=== PATIENT | female | born 1955 | race Caucasian/White ===

== ENCOUNTER → 2018-06-29 | Outpatient (CLI) | payer OTHER ==
[~2018-06-29] MED LIST: ALDACTONE25 MG PO; AMBIEN 5 MG TABL5 M1 PO; AMITRIPTYLINE H10 M1 PO; BUPROPION; DUEXIS 800-26.1 EACH PO; IBUPROFEN 800800 M1 PO; OMEPRAZOLE 20 M20 MG PO; ONDANSETRON HCL4 M2 PO; PERCOCET PO; PRILOSEC 20 MG20 MG PO; ROVIN-CF OF TA1 EACH; SKIN; SONATA10 MG PO; TENORMIN50 MG PO; TRAMADOL 50 MG50 MG PO; ULTRAM 50MG TAB50 MG PO; VICODIN 5-3001 EACH PO; WELLBUTRIN SR150 MG; WELLBUTRIN XL300 MG PO; ZANTAC 150MG T150 MG PO; [UNRECOGNIZED DRUG - OTHER]; [UNRECOGNIZED DRUG - OTHER] IMPLANT
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
== END | disposition home or self-care (01) ==
LOC: M.PC 04:25
DX: M47.26 Other spondylosis with radiculopathy, lumbar region (principal); G89.29 Other chronic pain; K21.9 Gastro-esophageal reflux disease without esophagitis; Z96.642 Presence of left artificial hip joint; Z98.890 Other specified postprocedural states; Z79.899 Other long term (current) drug therapy; Z88.2 Allergy status to sulfonamides; Z87.09 Personal history of other diseases of the respiratory system

== ENCOUNTER → 2018-08-03 | Outpatient (CLI) | payer OTHER ==
[~2018-08-03] MED LIST changes: -SKIN; -ZANTAC 150MG T150 MG PO; -[UNRECOGNIZED DRUG - OTHER]
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
== END | disposition home or self-care (01) ==
LOC: M.PC 04:48
DX: M54.16 Radiculopathy, lumbar region (principal); Z88.2 Allergy status to sulfonamides; Z79.899 Other long term (current) drug therapy; Z98.890 Other specified postprocedural states

== ENCOUNTER → 2018-08-31 | Outpatient (CLI) | payer OTHER ==
[~2018-08-31] MED LIST changes: +SKIN; +ZANTAC 150MG T150 MG PO; +[UNRECOGNIZED DRUG - OTHER]
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
== END | disposition home or self-care (01) ==
LOC: M.PC 04:57
DX: M47.26 Other spondylosis with radiculopathy, lumbar region (principal); G89.29 Other chronic pain; K21.9 Gastro-esophageal reflux disease without esophagitis; Z98.890 Other specified postprocedural states; Z96.642 Presence of left artificial hip joint; Z88.2 Allergy status to sulfonamides; Z79.899 Other long term (current) drug therapy

== ENCOUNTER → 2018-09-28 | Outpatient (CLI) | payer OTHER ==
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
== END ==
LOC: M.PC 04:54
DX: M47.26 Other spondylosis with radiculopathy, lumbar region (principal); K21.9 Gastro-esophageal reflux disease without esophagitis; R91.8 Other nonspecific abnormal finding of lung field; Z96.642 Presence of left artificial hip joint

== ENCOUNTER → 2019-02-15 | Outpatient (CLI) | payer OTHER ==
[~2019-02-15] MED LIST changes: +LYRICA 75 MG CA75 MG PO; +PROGESTERONE100 MG PO
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
== END | disposition home or self-care (01) ==
LOC: M.PC 10:00
DX: M47.26 Other spondylosis with radiculopathy, lumbar region (principal); G89.29 Other chronic pain; K21.9 Gastro-esophageal reflux disease without esophagitis; Z96.642 Presence of left artificial hip joint; Z98.890 Other specified postprocedural states; Z88.2 Allergy status to sulfonamides; Z79.899 Other long term (current) drug therapy

== ENCOUNTER → 2019-03-31 | Outpatient (CLI) | payer OTHER ==
[~2019-03-31] MED LIST changes: +MEDROLDOSEPACK PO
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
== END ==
LOC: M.PC 04:46
DX: M47.26 Other spondylosis with radiculopathy, lumbar region (principal); K21.9 Gastro-esophageal reflux disease without esophagitis; R91.1 Solitary pulmonary nodule; Z88.2 Allergy status to sulfonamides; Z79.899 Other long term (current) drug therapy

== ENCOUNTER → 2019-06-30 | Outpatient (CLI) | payer OTHER ==
--- NOTE | ~2019-06-30 | PAINCON ---
[address] [address] PAIN MANAGEMENT CONSULTATION Name: SHAYY ASHRAF [id number] Admission: 06/30/19 Attend Phys: Marissa Chen MD Discharge: Date of : 57 Report #: [id number] THIS REPORT FOR: //name// CC: Alen Chen DATE OF SERVICE: 06/30/2019 CHIEF COMPLAINT: Pain and discomfort in the low back and down to the left hip. It is radiating down into both legs and involving my feet. HISTORY: The patient is a 63-year-old female who has been followed in the pain clinic because of lumbar radiculopathy. She has undergone epidural steroid injections in the past. They have been beneficial. She returns today indicating that her pain level has risen to the point where it is uncomfortable. She is experiencing pain that is radiating down into her legs bilaterally. She notes injections, which have been beneficial. She is unable to sit, walk for long periods of time because of the increasing pain and discomfort. She finds that her medications are helpful and is taking them as prescribed. ALLERGIES: SULFA. CURRENT MEDICATIONS: Ibuprofen 800 mg q.i.d., famotidine/ibuprofen, Duexis 26.6/800 mg q. 8 hours, ondansetron 4 mg every 4-6 hours, Ultram 50 mg q. 6 hours p.r.n., Ambien 5 mg at bedtime, amitriptyline 20 mg daily. PAIN CLINIC AND PQRS: 1. The patient has some osteoarthritis, has some arthritic changes involving her hip. She has pain that radiates down into the lower portion of her back. She is not being treated for rheumatoid arthritis. 2. Height 5 feet 9 inches, weight 229 pounds, BMI is 34. 3. Vital signs: Blood pressure 140/86, heart rate 99, respiratory rate 16, room air saturation 95%, temperature 98.6. 4. Pain intensity 02/09. 5. Fall history: The patient has not fallen in the last 3 months. 6. Blood thinner. The patient is not on a blood thinning medication. 7. Hypertension. The patient is not being treated for hypertension. 8. Opioids greater than 6 weeks. The patient receives medications of tramadol through the pain clinic. 9. Risk assessment tool, low for opioid use. 10. Functional assessment tool. 11. Recreational drug use. The patient denies. 12. Tobacco: The patient denies use of tobacco. 13. Alcohol. The patient denies use of alcoholic beverages. PHYSICAL EXAMINATION: [address] [place] [address] PAIN MANAGEMENT CONSULTATION Name: SHAYY ASHRAF Room: [facility]#: [id number] Admission: 06/30/19 Attend Phys: Marissa Chen MD Discharge: Date of : 57 Report #: [id number] GENERAL: The patient is a well-developed, well-nourished white female. Appears her stated age. She is alert and oriented x 3. Her affect is appropriate. Speech is fluent. HEENT: Normocephalic, atraumatic. Extraocular eye muscles intact. Sclerae nonicteric. Mucous membranes are moist. NECK: Without adenopathy or JVD. HEART: Regular rate. ABDOMEN: Nontender. EXTREMITIES: Upper extremity muscle strength judged to be 5/5 for the major muscle groups in the upper extremity. The patient has pain and discomfort secondary to her shock shoulder. She has had a frozen shoulder on the right with limitation of motion. Continues to have pain that radiates into her back. Has pain in the L5/L4 dermatomal distribution. IMPRESSION: 1. Lumbar radiculopathy, L4-L5 dermatomal distribution improved after epidural steroid injections by greater than 50%. 2. Left hip pain. 3. Gastroesophageal reflux. 4. Pulmonary nodules. 5. Lumbar spondylosis. 6. History of sciatica. RECOMMENDATIONS: We discussed treatment options with the patient. Risks and benefits of an epidural steroid injection were discussed. They include but are not limited to infection, worsening of pain, no improvement in pain, nerve damage, headache, spinals damage and the patient elects to proceed. PROCEDURE NOTE: The patient was taken to the procedure area. She was then assisted in getting on the examination table. Her back was sterilely prepped with a Betadine solution. A pillow had been placed under the abdomen to bolster and improve positioning. A total of 4 mL of 0.5% bupivacaine was injected at the midline L4-L5 area to numb the area of the procedure. A 17-gauge Tuohy with loss of resistance technique was used to gain access to the epidural space. There was no CSF, heme or paresthesia. Total of 80 mg Depo-Medrol, 40 mg triamcinolone and 2 mL of 0.25% bupivacaine was injected. The patient tolerated the procedure well. There were no complications. She remained in the Pain Clinic for an appropriate amount of time. A script for her medications of amitriptyline 10 mg 2 tablets at bedtime for a total of 20 mg have been rewritten. The patient will also continue with tramadol 50 mg 1 p.o. t.i.d. p.r.n. and Lyrica 75 mg 1 p.o. b.i.d. as needed. [facility] [address] [place] [address] PAIN MANAGEMENT CONSULTATION Name: DANIEL ASHRAFTalisha Neely Room: [facility]#: [id number] Admission: 06/30/19 Attend Phys: Marissa Chen MD Discharge: Date of : 57 Report #: [id number] We would like to thank you for letting us participate in her care. We hope she continues to improve. Total of 8 seconds time was used. By: 1634 [id number]. Woody Chen MD /PMT
== END | disposition home or self-care (01) ==
LOC: M.PC 03-22 01:41
DX: M54.16 Radiculopathy, lumbar region (principal); K21.9 Gastro-esophageal reflux disease without esophagitis; R91.1 Solitary pulmonary nodule; M47.896 Other spondylosis, lumbar region; M19.90 Unspecified osteoarthritis, unspecified site; I10 Essential (primary) hypertension; Z88.2 Allergy status to sulfonamides; Z79.899 Other long term (current) drug therapy

== ENCOUNTER → 2019-12-13 | Outpatient (CLI) | payer MEDICARE, OTHER ==
[~2019-12-13] MED LIST changes: +LYRICA 50 MG50 MG PO; +progesterone PO
--- NOTE | 2019-12-16 08:24 | PAINCON ---
[address] [address] PAIN MANAGEMENT CONSULTATION Name: SHAYY ASHRAF Room: [facility] RyanElly#: [id number] Admission: 12/13/19 Attend Phys: Marissa Chen MD Discharge: Date of : 57 Report #: [id number] THIS REPORT FOR: //name// cc: Alen Wilkerson Brad DO ~ THIS REPORT FOR: //name// CC: Alen Ayoub DATE OF SERVICE: 12/13/2019 PRIMARY CARE PHYSICIAN: Alen Wilkerson DO CHIEF COMPLAINT: Left hip pain and pain going down into both the left and the right hip, the right pain is caused me to have difficulty sleeping. HISTORY: The patient is a 63-year-old female who has been followed in the pain clinic because of chronic pain. She has undergone epidural steroid injections in the past. She has found these beneficial. She returned today because of her pain continues to be quite problematic. Pain involves both her left and the right side. She has noticed that the pain in the right side has been somewhat problematic. She has difficulty going to sleep on that side. She has been having some increased burning in her feet, which is intense. She did have a urinary tract infection. She is now status post treatment of this urinary tract infection. She was provided with an antibiotic. States that this UTI symptomatology has resolved. She would like to proceed today with an epidural injection. She rates her pain today as 5/10. Notes that the pain is worse with activities, particularly when walking. Has used medications as well as heat to help control the discomfort. ALLERGIES: SULFA. CURRENT MEDICATIONS: Amitriptyline 10 mg at bedtime, uses 2 pills; ibuprofen 800 mg q. 8 hours p.r.n.; ibuprofen/famotidine, Duexis, 800/26.6; omeprazole 20 mg, ondansetron 4 mg q. 6 hours p.r.n., Lyrica 75 mg b.i.d., progesterone 100 mg, tramadol 50 mg q. 6 hours p.r.n., Ambien 5 mg at bedtime, multivitamins. PAIN CLINIC ASSESSMENT AND PQRS: 1. The patient has some arthritic changes involving her hip. She has pain that is radiating down into the lower portion of her back. She is not being treated for rheumatoid arthritis. 2. Height 5 feet 9 inches, weight 230 pounds, BMI is 34. 3. Vital signs: Blood pressure 156/104, second blood pressure 173/99, heart rate 111, respiratory rate 16, room air saturation 96%, [place] 98.0[place] [address] PAIN MANAGEMENT CONSULTATION Name: SHAYY ASHRAF [facility] [id number] Admission: 12/13/19 Attend Phys: Marissa Chen MD Discharge: Date of : 57 Report #: [id number] 4. Pain intensity 5/10. 5. Fall history: The patient has not fallen in the last 3 months. 6. Blood thinner. The patient is not on a blood thinning medication. 7. Hypertension. The patient is not being treated for hypertension. 8. Opioids greater than 6 weeks. The patient received medication from one source, primary care physician. 9. Risk assessment tool, low for opioid use. 10. Functional assessment tool. 11. Recreational drug use: The patient denies. 12. Tobacco: The patient denies. 13. Alcohol: The patient denies use of alcoholic beverages. PHYSICAL EXAMINATION: GENERAL: The patient is a well-developed, well-nourished white female. Appears her stated age. She is alert and oriented x 3. Her affect is appropriate. Speech is fluent. HEENT: Normocephalic, atraumatic. Extraocular eye muscles intact. Sclerae nonicteric. Mucous membranes are moist. NECK: Without adenopathy or JVD. HEART: Regular rate. ABDOMEN: Nontender. Bowel sounds present. EXTREMITIES: Upper extremity muscle strength judged to be 5/5 for the major muscle groups in the upper extremity. The patient without significant scoliosis, kyphosis or lordosis. The patient has some pain in the low back area. Has some pain that radiates down into her hips bilaterally. Has pain in the L4-L5 dermatomal distribution, particularly on the left leg. The patient has a frozen shoulder on the right which limits range of motion in this area. IMPRESSION: 1. Lumbar radiculopathy, L4-L5 distribution, improved after epidural steroid injections by greater than 50%. 2. Left hip pain. 3. Gastroesophageal reflux. 4. Pulmonary nodules. 5. Lumbar spondylosis. 6. History of sciatica. 7. History of frozen shoulder on the right. RECOMMENDATIONS: We discussed treatment options with the patient. Risks and benefits of an epidural steroid injection were discussed. Possible complications of the procedure, which could include but are not limited to infection, worsening pain, no improvement in pain, bleeding, nerve damage and the patient elects to proceed. PROCEDURE NOTE: The patient was taken to the procedure area. She was then assisted in getting on examination table. Her back was sterilely prepped with a [facility] [address] [place] [place] [address] PAIN MANAGEMENT CONSULTATION Name: SHAYY ASHRAF [facility] [id number] Admission: 12/13/19 Attend Phys: Marissa Chen MD Discharge: Date of : 57 Report #: [id number] Betadine solution. A 0.25% bupivacaine was infiltrated. A 17-gauge Tuohy with loss of resistance technique was used to gain access to the epidural space. There was no CSF, heme or paresthesia. A total of 80 mg Depo-Medrol, 40 mg triamcinolone and 0.25% bupivacaine was infiltrated at the L4-L5 interspace. The patient tolerated the procedure well. She remained in the Pain Clinic for an appropriate amount of time. She will follow up in the future as needed. We would like to thank you for letting us participate in her care. We hope she continues to improve. <ELECTRONICALLY SIGNED> By: Marissa Chen MD 12/16/19 0824 [id number]. Woody Chen MD /nt
== END | disposition home or self-care (01) ==
LOC: M.PC 09:43
DX: M47.26 Other spondylosis with radiculopathy, lumbar region (principal); M25.552 Pain in left hip; G89.29 Other chronic pain; K21.9 Gastro-esophageal reflux disease without esophagitis; Z98.890 Other specified postprocedural states; Z79.899 Other long term (current) drug therapy; Z88.2 Allergy status to sulfonamides

== ENCOUNTER → 2020-04-05 | Outpatient (CLI) | payer MEDICARE, OTHER ==
[~2020-04-05] MED LIST changes: +TENORMIN25 MG PO
--- NOTE | 2020-05-10 15:40 | PAINCON ---
[address] [address] PAIN MANAGEMENT CONSULTATION Name: SHAYY ASHRAF [facility]: [facility] AguilarKelly#: [id number] Admission: 04/05/20 Attend Phys: Marissa Chen MD Discharge: Date of : 57 Report #: [id number] THIS REPORT FOR: //name// cc: Alen Wilkerson Brad DO ~ THIS REPORT FOR: //name// CC: Alen Chen DATE OF SERVICE: 04/05/2020 PRIMARY CARE PHYSICIAN: Alen Wilkerson DO CHIEF COMPLAINT: Low back pain. HISTORY: The patient is a 64-year-old female who has been seen in the pain clinic in the past because of lumbar radiculopathy. She continues to have pain that waxes and wanes. It involves her low back. She has pain that radiates down into both left and right hip areas. It is rated as 5/10 today. She has some discomfort down into her feet. There is a burning sensation involved. She has been taking ibuprofen to help with the pain. She also continues to use Lyrica. She has used tramadol as well as amitriptyline. Notes that the pain is worse with activity. Medications and heat can be beneficial as well. She has returned today with the hopes of undergoing an epidural steroid injection to help quell the pain and discomfort she is experiencing. ALLERGIES: SULFA. CURRENT MEDICATIONS: Amitriptyline 10 mg at bedtime, uses 2 pills; ibuprofen 800 mg every 8 hours p.r.n., ibuprofen/famotidine Duexis 800/26.6, omeprazole 20 mg, ondansetron 4 mg q.6 hours p.r.n., Lyrica 75 mg b.i.d., progesterone 100 mg, tramadol 50 mg q. 6 hours p.r.n., Ambien 5 mg at bedtime, and multivitamins. PAIN CLINIC ASSESSMENT AND PQRS: 1. The patient has some arthritic changes in her hip. She does have pain that radiates down the lower portion of her back. She is not being treated for rheumatoid arthritis. 2. Height 5 feet 9 inches, weight 240 pounds, BMI is 35. 3. Vital signs: Blood pressure 146/68, pulse 96, respiratory rate 16, room air saturation 98%, temperature 98.9. 4. Pain intensity 5/10. 5. Fall history: The patient has not fallen in the last 3 months. 6. Blood thinner. The patient is not on a blood thinning medication. 7. Hypertension. The patient is not being treated for hypertension. 8. Opioids greater than 6 weeks. The [place] [address] PAIN MANAGEMENT CONSULTATION Name: DANIEL ASHRAFTalisha Neely Room: [facility]#: [id number] Admission: 04/05/20 Attend Phys: Marissa Chen MD Discharge: Date of : 57 Report #: [id number] source, her primary physician. 9. Risk assessment tool, low for opioid use. 10. Functional assessment tool reviewed. 11. Recreational drug use. The patient denies. 12. Tobacco: The patient denies. 13. Alcohol. The patient denies use of alcoholic beverages. PHYSICAL EXAMINATION: GENERAL: The patient is a well-developed, well-nourished white female. Appears her stated age. She is alert and oriented x 3. Her affect is appropriate. Speech is fluent. HEENT: Normocephalic, atraumatic. Extraocular eye muscles intact. Sclerae nonicteric. Mucous membranes are moist. NECK: Without adenopathy or JVD. HEART: Regular rate. ABDOMEN: Nontender. Bowel sounds present. EXTREMITIES: Upper extremity muscle strength judged to be 5/5 for the major muscle groups in the upper extremity. The patient without significant scoliosis, kyphosis or lordosis. The patient has pain in the lower portion of her back. Has pain is radiating down into her hips bilaterally. Pain is in the L4-L5 dermatomal distribution. The patient also has a frozen shoulder on the right, which limits her range of motion. IMPRESSION: 1. Lumbar radiculopathy, L4-L5 distribution, improved after epidural steroid injections in the past. 2. Left hip pain. 3. Gastroesophageal reflux. 4. Pulmonary nodules. 5. Lumbar spondylosis. 6. History of sciatica. 7. History of frozen shoulder on the right. RECOMMENDATIONS: We discussed treatment options with the patient. Risks and benefits of an epidural steroid injection were again discussed. Possible complications of the procedure, which could include but are not limited to infection, worsening of pain, no improvement in pain, nerve damage, bleeding were discussed. The patient elects to proceed. We explained to the patient that we were in a pandemic involving COVID-19. Steroids can decrease one's immunity, should the patient become infected after the injection, she may have a more difficult time if she is infected with the the virus given that steroids can lower ones immunity. She elects to proceed. PROCEDURE NOTE: The patient was taken to the procedure area. She was then assisted in getting on the examination table. Her [place] [address] PAIN MANAGEMENT CONSULTATION Name: SHAYY ASHRAF Room: [facility]#: [id number] Admission: 04/05/20 Attend Phys: Marissa Chen MD Discharge: Date of : 57 Report #: [id number] with a Betadine solution. A 0.25% bupivacaine was infiltrated at the L4-L5 interspace. There was no CSF, heme or paresthesia. Total of 80 mg Depo-Medrol, 40 mg triamcinolone and 2 mL of 0.25% bupivacaine was injected. The patient tolerated the procedure well. There were no complications. She remained in the Pain Clinic for an appropriate amount of time. She will follow up in the future as needed. A script for her medications of tramadol 50 mg 1 p.o. t.i.d. p.r.n. for pain has been written. The patient will also continue with Lyrica 50 mg 1 p.o. b.i.d. These were called into her pharmacy. We would like to thank you for letting us participate in her care. If she finds that the ibuprofen is causing gastric problems, she will stop taking that medication. <ELECTRONICALLY SIGNED> By: Marissa Chen MD 05/10/20 1540 1426 [id number]. Woody Chen MD /[facility]
== END | disposition home or self-care (01) ==
LOC: M.PC 03:55
PROVIDERS: ATTEND Anesthesiology Pain Medicine
DX: M54.16 Radiculopathy, lumbar region (principal); G89.29 Other chronic pain; K21.9 Gastro-esophageal reflux disease without esophagitis; Z98.890 Other specified postprocedural states; Z79.899 Other long term (current) drug therapy; Z88.2 Allergy status to sulfonamides

== ENCOUNTER → 2020-08-09 | Outpatient (CLI) | payer MEDICARE, OTHER ==
--- NOTE | 2020-08-24 08:24 | PAINCON ---
[address] [address] PAIN MANAGEMENT CONSULTATION Name: SHAYY ASHRAF Room: [facility].#: [id number] Admission: 08/09/20 Attend Phys: Marissa Chen MD Discharge: Date of : 57 Report #: [id number] THIS REPORT FOR: //name// cc: Alen Wilkerson DO Rhea,Alen DO ~ CC: Alen Chen DATE OF SERVICE: 08/23/2020 CHIEF COMPLAINT: Return of back pain. It involves both hips and down the right leg into the foot. HISTORY: The patient is a 64-year-old female who has been followed in the pain clinic. She suffers from lumbar radiculopathy. Epidural steroid injections have been performed in the past and brought her benefit. She rates her pain today as a 5-6/10. Has more difficulty over the last 3 months. She has had problems going shopping, sitting, standing and engaging in other activities. She feels that her medications continue to be helpful. She would like to proceed with epidural steroid injection given that her pain has increased at this juncture. ALLERGIES: SULFA. CURRENT MEDICATIONS: Amitriptyline 10 mg at bedtime 2 pills, ibuprofen 800 mg every 8 hours p.r.n., ibuprofen/famotidine 800/26.6, Omeprazole 20 mg, ondansetron 4 mg p.r.n., Lyrica 75 mg b.i.d., progesterone 100 mg, tramadol 50 mg p.r.n., Ambien 5 mg at bedtime, and multivitamins. PAIN CLINIC ASSESSMENT AND PQRS: 1. The patient has some arthritic changes in her hip. She has had pain that radiates down into the lower portion of her back. She is not being treated for rheumatoid arthritis. 2. Height 5 feet 9 inches, weight 241 pounds, BMI is 35.6. 3. Vital Signs: Blood pressure 136/85, heart rate 77, respiratory rate 16, room air saturation 97%. 4. Pain intensity is 5-6/10. 5. Blood thinner. The patient is not on a blood thinning medication. 6. Hypertension. The patient is not being treated for hypertension. 7. Opioids greater than 6 weeks. The patient received medication from her primary. 8. Risk assessment tool, low for opioid use. 9. Functional assessment tool reviewed. 10. Recreational drug use: The patient denies. 11. Tobacco: The patient denies. 12. Alcohol. The patient [place] [address] PAIN MANAGEMENT CONSULTATION Name: SHAYY ASHRAF Room: [facility]#: [id number] Admission: 08/09/20 Attend Phys: Marissa Chen MD Discharge: Date of : 57 Report #: [id number] PHYSICAL EXAMINATION: GENERAL: The patient is a well-developed, well-nourished white female. Appears her stated age. She is alert and oriented x 3. Her affect is appropriate. Speech is fluent. HEENT: Normocephalic, atraumatic. Extraocular eye muscles intact. Sclerae nonicteric. The patient is wearing a mask. NECK: Without adenopathy or JVD. HEART: Regular rate. LUNGS: Clear. ABDOMEN: Nontender. Bowel sounds present. EXTREMITIES: Upper extremity muscle strength judged to be 5/5 for the major muscle groups in the upper extremity. The patient without significant scoliosis, kyphosis or lordosis. The patient has pain in the lower portion of her back. Pain radiates down into the hips bilaterally. Pain is in the L4-L5 dermatomal distribution. The patient also has a frozen shoulder on the right, which limits her range of motion. IMPRESSION: 1. Lumbar radiculopathy, L4-L5, improved after epidural steroid injections. The patient requesting another today. 2. Left hip pain. 3. Gastroesophageal reflux. 4. Pulmonary nodules. 5. Lumbar spondylosis. 6. History of sciatica. 7. History of frozen shoulder on the right. RECOMMENDATIONS: We discussed treatment options with the patient. Risks and benefits of an epidural steroid injection were discussed. Possible complications of the procedure, which could include, but are not limited to infection, worsening pain, no improvement in pain, nerve damage, bleeding, infection were discussed. The patient elects to proceed. We again discussed the problems with the pandemic of COVID-19. Steroids can decrease one's immunity. The patient may have more problem with the infection should she become . Given that the steroids lower her immunity. She elects to proceed. PROCEDURE NOTE: The patient was taken to the procedure area. She was assisted in getting on the table. Her back was sterilely prepped with a Betadine solution. A 0.25% bupivacaine was infiltrated at the L4-L5 interspace. There was no CSF, heme or paresthesia. A pillow had been placed under abdomen to bolster and improve positioning. A total of 80 mg Depo-Medrol, 40 mg triamcinolone and 2 mL of 0.25% bupivacaine was injected. The patient tolerated the procedure well. Fluoroscopy corroborated the appropriate placement of the injection. The patient has been provided renewal of [place] [address] PAIN MANAGEMENT CONSULTATION Name: SHAYY ASHRAF Room: [facility]#: [id number] Admission: 08/09/20 Attend Phys: Marissa Chen MD Discharge: Date of : 57 Report #: [id number] 50 mg 1 p.o. t.i.d. The patient will also continue with Lyrica 50 mg b.i.d., these have been related to her pharmacy. She will call us if she has any concerns. We would like to thank you for letting us participate in her care. We hope she continues to improve. <ELECTRONICALLY SIGNED> By: Marissa Chen MD 08/24/20 0824 0838 2109N. Woody Chen MD /[facility]
== END | disposition home or self-care (01) ==
LOC: M.PC 10:25
PROVIDERS: ATTEND Anesthesiology Pain Medicine
DX: M47.26 Other spondylosis with radiculopathy, lumbar region (principal); G89.29 Other chronic pain; K21.9 Gastro-esophageal reflux disease without esophagitis; Z98.890 Other specified postprocedural states; Z79.899 Other long term (current) drug therapy; Z87.891 Personal history of nicotine dependence

== ENCOUNTER → 2021-01-01 | Outpatient (CLI) | payer MEDICARE, OTHER | END | disposition home or self-care (01) | LOC: M.PC 10:42 | PROVIDERS: ATTEND Anesthesiology Pain Medicine | DX: M54.16 Radiculopathy, lumbar region (principal); G89.29 Other chronic pain; M25.552 Pain in left hip; K21.9 Gastro-esophageal reflux disease without esophagitis; Z98.890 Other specified postprocedural states; Z79.899 Other long term (current) drug therapy; Z90.710 Acquired absence of both cervix and uterus; Z88.2 Allergy status to sulfonamides ==

== ENCOUNTER 2021-06-04 13:50 | Inpatient (IN) | payer MEDICARE, OTHER ==
[~2021-06-04] VITALS: Ht 175.3 cm; Wt 99.8 kg
[~2021-06-04 13:50] MED LIST changes: -PROGESTERONE100 MG PO; +PROGESTERONE100 MG SUBQ
[2021-06-04 14:02] VITALS: BP 148/81
--- NOTE | 2021-06-04 14:09 | EKG ---
[place] [address] ELECTROCARDIOGRAM REPORT Name: DANIEL ASHRAFI Florinda Room: [facility]#: [id number] Admission: Attend Phys: Discharge: Date of : 57 Date of Service: 06/04/21 1355 Report #: [id number] THIS REPORT FOR: //name// [facility] ED Test Date: 2021-06-04 Test Time: 13:55:26 Pat Name: SHAYY ASHRAF Department: Room: Gender: F Shredder Picker: LADI : 1955 Requested By: Juve Gill Order Number: [id number] MD: Elmer Lafleur Measurements Intervals [place] Rate: 87 P: 149 NE: 144 QRS: 156 QRSD: 106 T: 177 QT: 411 QTc: 495 Interpretive Statements Right and left arm electrode reversal, interpretation assumes no reversal Sinus or ectopic atrial rhythm nonspecific T wave changes Probable lateral infarct, age indeterminate Compared to ECG 02/19/2011 10:06:14 Ectopic atrial rhythm now present Myocardial infarct finding now present Electronically Signed On 06-04-2021 14:09:22 CDT by Elmer Lafleur [email or web address] <ELECTRONICALLY SIGNED> By: Elmer Lafleur MD, [facility] 06/04/21 1409 1355 1355 Elmer Lafleur MD, [facility] /EPI
[2021-06-04 14:43] LABS: ABSOLUTE EOSINOPHILS 0.1 thou/uL (0.0-0.7); ABSOLUTE LYMPHOCYTES 1.8 thou/uL (0.8-5.3); ABSOLUTE NEUTROPHILS 7.5 thou/uL (1.6-8.1); BASOPHILS 0.4 %; EOSINOPHILS 0.5 %; HEMATOCRIT 39.3 % (37.0-47.0); HEMOGLOBIN 12.9 gm/dL (12.0-15.0); LYMPHOCYTES 17.1 %; MCH 29.6 pg (26.0-34.0); MCHC 32.8 g/dL (28.0-37.0); MCV 90.2 fL (80.0-100.0); MONOCYTES 9.7 %; MPV 7.7 fl. (7.2-11.1); NUCLEATED RBCS 0 /100WBC; PLATELET COUNT* 449 thou/uL (150-400); POLYS 72.3 %; RBC 4.36 mil/uL (4.20-5.00); RDW-CV 14.1 % (10.5-14.5); WBC 10.4 thou/uL (4.0-11.0)
[2021-06-04 14:52] LABS: CALCIUM 7.5 mg/dL (8.5-10.1); POTASSIUM 3.1 mmol/L (3.5-5.1)
[2021-06-04 14:57] LABS: ALBUMIN 2.5 g/dL (3.4-5.0); TOTAL BILIRUBIN 0.3 mg/dL (<0.1-1.0)
[2021-06-04 15:14] LABS: URINE BILIRUBIN NEGATIVE (Negative); URINE BLOOD 1+ (Negative); URINE CLARITY CLEAR; URINE COLOR YELLOW; URINE GLUCOSE-RANDOM NEGATIVE (Negative); URINE KETONES NEGATIVE (Negative); URINE LEUKOCYTES-REFLEX TRACE (Negative); URINE NITRITE-REFLEX NEGATIVE (Negative); URINE PROTEIN 1+ (Negative); URINE SPECIFIC GRAVITY 1.015 (1.005-1.030); URINE UROBILINOGEN 0.2 E.U./dl (0.2-1.0)
[2021-06-04 15:22] LABS: BACTERIA-REFLEX 1-9 Few /HPF (None Seen); CASTS None Seen /LPF (None Seen); CRYSTALS None Seen /LPF (None Seen); SQUAMOUS >10 Many /LPF (0-3); URINE RBC 0-2 Rare /HPF (0-2); URINE WBC-REFLEX 0-5 Rare /HPF (0-5)
[2021-06-04 18:03] VITALS: BP 122/48
[2021-06-04 18:30] VITALS: BP 147/71
--- NOTE | 2021-06-04 20:14 | NUR ---
ADMITTED TO ICU BED 3 AT 1820, TELE OVERFLOW. VSS. 2L O2 PER NC, O2 SAT 95%, LSCTA. DENIES PAIN. REPORTS SOA WITH EXERTION. 2+ PULSES. PT ORIENTED TO ROOM/CALL LIGHT. ALL QUESTIONS ANSWERED. BOX LUNCH GIVEN. CALL LIGHT WITHIN REACH.
[2021-06-04] MEDS ORDERED: MELATONIN5 MG (20:21)
[2021-06-04 21:00] VITALS: BP 142/71
[2021-06-04 22:00] VITALS: BP 138/70
[2021-06-04 23:00] VITALS: BP 134/65
[2021-06-05] VITALS (10 sets, daily range): BP systolic 111–143; BP diastolic 47–79
[2021-06-05 03:37] LABS: HEMATOCRIT 37.8 % (37.0-47.0); HEMOGLOBIN 12.8 gm/dL (12.0-15.0); MCH 30.3 pg (26.0-34.0); MCHC 33.8 g/dL (28.0-37.0); MCV 89.8 fL (80.0-100.0); RBC 4.21 mil/uL (4.20-5.00); RDW-CV 14.2 % (10.5-14.5)
[2021-06-05 03:49] LABS: CALCIUM 8.1 mg/dL (8.5-10.1); CREATININE 0.9 mg/dL (0.6-1.3); POTASSIUM 3.7 mmol/L (3.5-5.1)
--- NOTE | 2021-06-05 15:53 | NUR ---
Patient admitted for COVID 19 and hypoxemia. Attempted to call (Sanjay/[phone]) to introduce role of CM. Left vm for a return call. Patient is currenlty on steroids. Patient is currently on 1-2L NC. Will attempt outreach to again tomorrow. CM to continue to follow
--- NOTE | 2021-06-05 18:36 | NUR ---
RECEIVED REPORT FROM JOSÉ RHODES. ICU TRANSFER. PT ARRIVED ON UNIT AROUND 1809. ASSUMED CARE. STABLE. ISOLATION INTACT. ORIETNED TO NEW ROOM. PT UP ADLIB TO BSC. CALL LIGHT WITH IN REACH. WILL CONTINUE TO MONITOR.
[2021-06-06 03:54] VITALS: BP 122/55
--- NOTE | 2021-06-06 04:04 | NUR ---
PT SLEPT ON AND OFF THIS SHIFT. ASSESSMENT DOCUMENTED. MEDS GIVEN PER E-MAR. IV PATENT. PT VERY ANXIOUS THIS SHIFT ABOUT HER . PT CURRENTLY ON 4L NC, TOLERATING WELL. PT ABLE TO AMBULATE TO BATHROOM WITH MINIMAL ASSIST. ISOLATOIN MAINTINED. WILL CONTINUE WITH PLAN OF CARE.
[2021-06-06 08:00] VITALS: BP 129/56
[2021-06-06 09:37] LABS: CALCIUM 8.2 mg/dL (8.5-10.1); CREATININE 0.9 mg/dL (0.6-1.3); POTASSIUM 3.3 mmol/L (3.5-5.1)
[2021-06-06 09:40] LABS: MAGNESIUM 2.3 mg/dL (1.8-2.4); PHOSPHORUS* 2.9 mg/dL (2.5-4.9)
[2021-06-06 11:31] VITALS: BP 128/59
--- NOTE | 2021-06-06 14:45 | NUR ---
CM ASSESSMENT: PT ADMITTED COVID POSITIVE AND CURRENTLY UNDER ENHANCED PRECAUTIONS. PT A&O, INDEPENDENT WITH ADL'S AND DRIVES. PT RESIDES AT HOME WITH SPOUSE. PT USED HOME NEBULIZER PRIOR TO ADMIT. PT OWNS A WALKER AND CANE, BUT DID NOT USE PRIOR TO ADMIT. PT HAS 0 HX OF HH OR SNF. PT INFORMS THAT HER SPOUSE IS CURRENTLY ADMITTED TO [facility] WITH COVID AND ON BIPAP @100%. PT INFORMS THAT HER BROTHER IS CURRENTLY ASSISTING WITH PASSING INFO ABOUT HER SPOUSE TO HER. PT INFORMS THAT SHE HASN'T HEARD FROM HER BROTHER, BUT IS GETTING ANXIOUS ABOUT GETTING AN UPDATE ON HER SPOUSE. PT'S BROTHER HAS THE CONFIDENTIAL CODE TO GET INFO ABOUT THE PT'S SPOUSE. CM AND RN ASSISTED PT WITH COMPLETING DPOA FOR HEALTHCARE FOR THE PT. CM PROVIDED PT WITH COPIES AND COPY PLACED ON PT'S CHART. CM WILL REMAIN AVAILABLE TO ASSIST AND FOLLOW NEEDED.
[2021-06-06 15:56] VITALS: BP 118/64
[2021-06-06 18:04] LABS: APTT 23.6 Seconds (25.0-31.3); PROTIME 10.8 Seconds (9.20-11.50)
--- NOTE | 2021-06-06 18:44 | NUR ---
RECEIVED REPORT AROUND 0715. ASSUMED CARE. VS AND ASSESSMENT CHARTED. NEW IV PLACED IN RIGHT HAND. HEART MONITOR ATTACHED AT SR. MEDS GIVEN PER DEC. HOULRY ROUNDING PERFORMED. PT TO HAVE PICC PLACED TOMORROW IF NO OTHER OPTION IS AVAILABLE. NO PAIN. CALL LIGHT WITH IN REACH. WILL CONTINUE TO MONITOR.
[2021-06-06 21:00] VITALS: BP 139/83
[2021-06-07 00:13] VITALS: BP 120/51
[2021-06-07 04:14] VITALS: BP 116/54
--- NOTE | 2021-06-07 05:49 | NUR ---
PT SLEPT MOST OF SHIFT. ASSESSMENT DOCUMENTED. MEDS GIVEN PER E-MAR. IV PATENT. NO REPORTS OF PAIN. PT TITRATED TO 2L NC THIS SHIFT, PT TOLERATED WELL. PT ABLE TO MAKE NEEDS KNOWN. WILL CONTINUE WITH PLAN OF CARE.
[2021-06-07 08:59] VITALS: BP 119/59
--- NOTE | 2021-06-07 10:25 | CON ---
[address] [address] CONSULTATION Name: SHAYY ASHRAF Room: [address] [place] .R.#: [id number] Admission: 06/04/21 Attend Phys: Mohan Childers Discharge: Date of : 57 Report #: [id number] THIS REPORT FOR: cc: Alen Wilkerson,Alli Parker MD ~ DATE OF CONSULTATION: 06/06/2021 REQUESTING PHYSICIAN: Dr. Weber. INDICATION FOR CONSULTATION: Acute hypoxemic respiratory failure secondary to COVID-19. HISTORY OF PRESENT ILLNESS: This is a 65-year-old female with past medical history as mentioned below. She is a lifetime nonsmoker, does not have a history of longstanding cardiac or respiratory disease. She has not been vaccinated for COVID-19. The patient's is also COVID-19 positive and she tested positive for COVID-19 either on 05/29 or 05/30. Had been symptomatic for about a week before. Has been having shortness of breath. Has had a cough. Was bringing up clear sputum. Has been febrile. Has had a reduction in appetite. The patient initially reported to have an O2 saturation of 86%. Currently, is on nasal cannula. Has been on 6 mg of dexamethasone daily. O2 saturation has fluctuated to needing 2-6 liters of oxygen to maintain O2 saturation in the low 90s. Currently, the patient is on 3 liters of oxygen. She is saturating at 97%. She reports improvement in shortness of breath compared with when she was admitted. There is minimal swelling of lower extremities. There is no calf pain. She answers to the negative for 12 questions for review of systems, except as mentioned above. PAST MEDICAL HISTORY: 1. Head injury in 2011. 2. Hysterectomy in 2001. 3. ACL reconstruction in 2008. 4. Left foot surgery in 1997. SOCIAL HISTORY: No known history of smoking, ethanol abuse, or drug abuse. CURRENT MEDICATIONS: List in [facility] reviewed. HOME MEDICATIONS: List also in [facility] reviewed. ALLERGIES: [place] [address] CONSULTATION Name: PASCALESHAYY L Room: [address]#: [id number] Admission: 06/04/21 Attend Phys: Mohan Childers Discharge: Date of : 57 Report #: [id number] FAMILY HISTORY: also has COVID-19. IMMUNIZATION HISTORY: Did not receive COVID-19 vaccine. PHYSICAL EXAMINATION: GENERAL: Alert, awake and oriented. Does not appear to be in any distress. VITAL SIGNS: Pulse of 96, blood pressure 118/64, saturating 97% on 3 liters nasal cannula, respiratory rate 18-20, afebrile with a temperature of 36.2. HEENT: Head is normocephalic and atraumatic. NECK: Does not show raised JVP. CHEST: Clear to auscultation. HEART: Regular. No murmur. ABDOMEN: Soft and nontender. EXTREMITIES: Lower extremities show minimal edema. No calf tenderness. SKIN: Dry and intact. NEUROLOGICAL: Moves all extremities bilaterally equally and spontaneously with no focal deficit identified. IMAGING DATA: The patient's chest x-ray which I repeated today shows bilateral infiltrates consistent with COVID-19. There are no consolidative infiltrates identified. Chest x-ray in fact looks better than the one performed 2 days ago. LABORATORY DATA: The patient's lab work is in [place] and this is reviewed. Had low potassium earlier today, which is replaced. I obtained coag. There is elevation in D-dimer. ASSESSMENT AND PLAN: 1. Acute hypoxemic respiratory failure secondary to COVID-19. Continue to titrate oxygen. Continue to encourage out of bed to chair and prone positioning. If not prone, then recommend lying on sides, avoid supine sleep. 2. COVID-19. Agree with dexamethasone at 6 mg daily. Also, I agree with adding remdesivir as studies indicate that remdesivir does reduce length of stay. I recommend following LFTs while on remdesivir. As the patient is feeling better already compared with admission, I decided to hold off on convalescent plasma as well as Actemra for now. The patient does state that she is agreeable to receiving these should we recommend. 3. Pulmonary infiltrates. Primarily, these appear to be secondary to COVID-19. I do not see any definite evidence of bacterial infection. Therefore, we would hold off on antibiotics for now. I did order a nasal swab for MRSA. She has some clear sputum. If she is able to give a sample, we would still like to do a sputum culture. 4. Elevated D-dimer. We will do venous Dopplers. For now, I decided to hold off on CTA chest. Should she fail to improve, then we will consider the CTA chest tomorrow. [address] [address] CONSULTATION Name: SHAYY ASHRAF Room: [address]#: [id number] Admission: 06/04/21 Attend Phys: Mohan Childers Discharge: Date of : 57 Report #: [id number] 5. Deep venous thrombosis prophylaxis. She is on Lovenox. Thanks for this consultation. <ELECTRONICALLY SIGNED> By: Alli Erwin MD 06/07/21 1025 1725 [id number] Erwin MD /nt
[2021-06-07 12:00] VITALS: BP 114/63
[2021-06-07 12:27] LABS: CALCIUM 8.2 mg/dL (8.5-10.1); POTASSIUM 3.6 mmol/L (3.5-5.1)
[2021-06-07] MEDS ORDERED: DECADRON6 MG PO (14:42)
--- NOTE | 2021-06-07 15:43 | NUR ---
Called patients room x2 over last hour with no answer. Plan is for Discharge today and orders have been entered for O2 and HH services ExerOx is completed. Order for O2, H&P,DC summary faxed to [facility] [phone] [facility] H&P and DC summary with HH orders faxed to [phone].Called and spoke to Valentín to verify they accepted insurance. Update of discharge planning info called to JOSÉ Jiménez since pt is not answering her room phone
[2021-06-07] MEDS ORDERED: PROAIR HFA8.5 GM INH (16:28)
[2021-06-07 19:20] VITALS: BP 114/63
--- NOTE | 2021-06-07 20:10 | NUR ---
Reviewed discharge teaching with patient; verbalized understanding. Pt discharging with home O2 per [facility], and Home Health per [facility]. Monitor and IV dc'd. Pt discharged from unit per WC.
--- NOTE | 2021-06-10 09:06 | NUR ---
VM left after hours Thursday06/07/21 stating unable to take patient for . Sent referral to [facility] fax [phone]. Called after 15 minutes and confirmed with intake they had received fax. Pt is scheduled for 06/11/21 visit. KAZ RB notified patient.
== END 2021-06-07 20:10 | disposition home health service (06) | DRG 177 ==
LOC: M.ERS 13:50 → M.TBA-ER 15:07 → M.ICU 15:07 → M.ORTHSURG 06-05 18:31
PROVIDERS: Family Medicine; Internal Medicine Critical Care Medicine; ADMIT Internal Medicine; ATTEND Internal Medicine
PROC: 5A0935A Assistance with Respiratory Ventilation, Less than 24 Consecutive Hours, High Flow/Velocity Cannula (ICD-10-PCS; principal; 2021-06-05)
PROC: XW033E5 Introduction of Remdesivir Anti-infective into Peripheral Vein, Percutaneous Approach, New Technology Group 5 (ICD-10-PCS; 2021-06-06)
PROC: 5A0935A Assistance with Respiratory Ventilation, Less than 24 Consecutive Hours, High Flow/Velocity Cannula (ICD-10-PCS; 2021-06-07)
DX: U07.1 COVID-19 (principal); J96.01 Acute respiratory failure with hypoxia; J12.82 Pneumonia due to coronavirus disease 2019; M54.9 Dorsalgia, unspecified; E87.6 Hypokalemia; G89.29 Other chronic pain; F41.1 Generalized anxiety disorder; F32.9 Major depressive disorder, single episode, unspecified; Z90.710 Acquired absence of both cervix and uterus; Z88.2 Allergy status to sulfonamides; Z84.89 Family history of other specified conditions; Z82.49 Family history of ischemic heart disease and other diseases of the circulatory system; Z82.3 Family history of stroke; Z79.899 Other long term (current) drug therapy